=== PATIENT | male | born 1985 | race Caucasian/White ===

== ENCOUNTER 2024-11-20 17:26 | Emergency (ER) | payer OTHER ==
[~2024-11-20] VITALS: Ht 182.9 cm; Wt 70.3 kg
[~2024-11-20 17:26] MED LIST: (None)15 GM EXT; ALBU90I INH; Bactrim Ds Tab1 EACH PO; CEPH500 PO; CODGUAEL PO; FLU; HYDACE5 PO; IBUP200 PO; IBUP800 PO; Norco 10-325 T1 EACH PO; Norco 5-325 Ta1 EACH PO; PENVK250 PO; PENVK500 PO; RXHYDACE PO; RXPENVK250 PO; SULTRIDS PO; [UNRECOGNIZED DRUG - OTHER]
[2024-11-20 17:39] VITALS: BP 118/83
[2024-11-20] MEDS ORDERED: ALEVAZOL56.7 G1 TOP (17:57)
[2024-11-20 19:38] LABS: Chlamydia Trachomatis Urine NOT DETECTED (NOT DETECT); Neisseria Gonorrhoea Urine NOT DETECTED (NOT DETECT)
[2024-11-21] MEDS ORDERED: ALEVAZOL56.7 G1 TOP (10:13)
== END 2024-11-20 18:00 | disposition home or self-care (01) ==
LOC: ER 17:26
PROVIDERS: Student in an Organized Health Care Education/Training Program
DX: N48.1 Balanitis (principal); F17.200 Nicotine dependence, unspecified, uncomplicated
CPT/HCPCS: 81000; 87491; 87591; 99283

== ENCOUNTER 2024-11-27 12:50 | Emergency (ER) | payer OTHER ==
[~2024-11-27] VITALS: Ht 182.9 cm; Wt 68.0 kg
[~2024-11-27 12:50] MED LIST changes: +ALEVAZOL56.7 G1 TOP
[2024-11-27] MEDS ORDERED: [UNRECOGNIZED DRUG - OTHER] TOP (16:16)
[2024-11-27] MEDS ORDERED: Diflucan150 MG PO (16:16)
[2024-11-27 16:20] VITALS: BP 120/78
== END 2024-11-27 16:22 | disposition home or self-care (01) ==
LOC: ER 12:50
DX: B37.42 Candidal balanitis (principal); F17.200 Nicotine dependence, unspecified, uncomplicated; Z79.899 Other long term (current) drug therapy
CPT/HCPCS: 99282